=== PATIENT | male | born 1970 | race Caucasian/White ===

== ENCOUNTER → 2019-07-31 12:30 | Outpatient (CLI) | payer BC | END | disposition home or self-care (01) | LOC: D.RT 12:30 | PROVIDERS: ATTEND Internal Medicine Pulmonary Disease | DX: R91.1 Solitary pulmonary nodule (principal) ==

== ENCOUNTER → 2019-11-13 08:19 | Outpatient (CLI) | payer BC | END | disposition home or self-care (01) | LOC: D.CT 08:19 | PROVIDERS: ATTEND Internal Medicine Pulmonary Disease | DX: R91.1 Solitary pulmonary nodule (principal) ==